=== PATIENT | male | born 1980 | race Hispanic/Latino ===

== ENCOUNTER 2022-01-08 20:35 | Emergency (ER) | payer OTHER ==
[~2022-01-08] VITALS: Ht 185.4 cm; Wt 132.4 kg
[2022-01-08 21:18] VITALS: BP 158/87
== END 2022-01-08 21:18 | disposition home or self-care (01) ==
LOC: FSED 20:45
DX: K11.8 Other diseases of salivary glands (principal); E11.9 Type 2 diabetes mellitus without complications
CPT/HCPCS: 99282